=== PATIENT | female | born 1950 | race Caucasian/White ===

== ENCOUNTER 2017-04-06 19:07 | Emergency (ER) | payer MEDICARE ==
[~2017-04-06] VITALS: Ht 152.4 cm; Wt 60.5 kg
[2017-04-06 19:08] VITALS: TEMP 98.2
[2017-04-06] MEDS ORDERED: PROZAC40 MG PO (19:12)
[2017-04-06] MEDS ORDERED: LIPITOR20 MG PO (19:12)
[2017-04-06] MEDS ORDERED: NORVASC2.5 MG PO (19:13)
[2017-04-06] MEDS ORDERED: VIVLODEX10 MG PO (19:13)
[2017-04-06 19:59] LABS: BASO # 0.1 (0.0-0.2); BASO % 1.5 % (0.0-2.0); EOS # 0.4 (0.0-0.7); EOS % 4.7 % (0-4.0); GRAN # 4.5 (1.4-6.5); HEMOGLOBIN 12.1 g/dl (12.5-16.0); LYMPH # 2.7 (1.2-3.4); LYMPH % 31.9 % (20.0-51.0); MEAN CELL VOLUME 89 fl (80.0-100.0); MEAN CORPUSCULAR HEMOGLOBIN 29 pg (27.0-31.0); MEAN CORPUSCULAR HGB CONC 33 g/dl (33.0-37.0); MEAN PLATELET VOLUME 12.8 fl (7.4-10.4); MONO # 0.8 (0.1-0.6); MONO % 9.7 % (1.7-9.3); PLATELET COUNT 154 K/mm3 (130-400); RED BLOOD COUNT 4.14 M/mm3 (4.10-5.30); REDCELL DISTRIBUTION WIDTH-CV 12.7 % (11.5-14.5); WHITE BLOOD COUNT 8.6 K/mm3 (4.8-10.8)
[2017-04-06 20:13] LABS: ADJUSTED CALCIUM 9.2 mg/dL (8.4-10.2); ALANINE AMINOTRANSFERASE 41 U/L (9-52); ALBUMIN 4.3 gm/dL (3.5-5.0); ALKALINE PHOSPHATASE 53 U/L (50-136); ANION GAP 15 mmol/L (7-16); BILIRUBIN,TOTAL 0.7 mg/dL (0.0-1.0); BLOOD UREA NITROGEN 20 mg/dL (7-17); CALCIUM 9.4 mg/dL (8.4-10.2); CARBON DIOXIDE 22 mmol/L (22-30); CHLORIDE 104 mmol/L (98-107); CREATININE, serum 1.46 mg/dL (0.52-1.25); GLUCOSE 126 mg/dL (74-106); HEMATOCRIT 36.9 % (37.0-47.0); SODIUM 140 mmol/L (137-145); TOTAL PROTEIN 6.9 gm/dL (6.4-8.2)
[2017-04-06 20:20] LABS: C-REACTIVE PROTEIN < 0.5 mg/dL (0.0-0.9); POTASSIUM 2.9 mmol/L (3.4-5.0)
[2017-04-06 20:22] LABS: B-TYPE NATRIURETIC PEPTIDE 51 pg/mL (0-125)
[2017-04-06 20:23] LABS: TROPONIN-I < 0.012 ng/mL (0.000-0.034)
[2017-04-06 21:52] LABS: PH 5 (5-8); SQUAMOUS EPITHELIAL 0-2 /hpf; URINE APPEARANCE Clear; URINE BACTERIA None Seen /hpf; URINE BILIRUBIN Negative (NEGATIVE); URINE BLOOD Negative (NEGATIVE); URINE COLOR Yellow; URINE GLUCOSE Negative (NEGATIVE); URINE KETONE Negative (NEGATIVE); URINE RBC 0-2 /hpf; URINE UROBILINOGEN Negative (NEGATIVE); URINE WBC 0-2 /hpf
[2017-04-06] MEDS ORDERED: K-DUR20 MEQ PO (22:20)
[2017-04-06 22:35] VITALS: BP 112/62; PULSE 78
== END 2017-04-06 22:36 | disposition home or self-care (01) ==
LOC: COL.ER 19:07
PROVIDERS: Emergency Medicine
DX: N19 Unspecified kidney failure (principal); E86.0 Dehydration; E87.1 Hypo-osmolality and hyponatremia; I10 Essential (primary) hypertension; F32.9 Major depressive disorder, single episode, unspecified
CPT/HCPCS: J7030